=== PATIENT | female | born 1985 ===

== ENCOUNTER 2016-08-11 06:22 | Emergency (ER) | payer OTHER, SELFPAY ==
--- NOTE | 2016-08-18 03:28 | ER ---
ADMIT: 08/11/2016 RM/LOC: ER [facility] MR#: [id number] [facility] [id number], [place] [id number] KATLYN CARMELITA [address] [place] [id number] Emergency Room Report SEX: F AGE: 30 : 1985 DATE: 08/11/2016 The patient is a 30-year-old female, with typical migraine headache for the past 2 days. Received IV fluid bolus, Zofran, Toradol, magnesium, DHE, Reglan, and Benadryl with 50% improvement of pain. Follow up with Dr. Foley as needed. Clement Magana MD/ carleyl JOB #: [id number] CC: Clement Magana MD, Attending Physician Maine Foley MD, Family Physician Maine Foley MD
== END 2016-08-11 08:45 | disposition home or self-care (01) ==
LOC: ER 06:22
DX: R51 Headache (principal); G89.29 Other chronic pain; I10 Essential (primary) hypertension; E03.9 Hypothyroidism, unspecified; Z79.899 Other long term (current) drug therapy